=== PATIENT | male | born 1950 | race Caucasian/White ===

== ENCOUNTER 2017-12-31 06:36 | Emergency (ER) | payer OTHER, BC ==
[~2017-12-31] VITALS: Ht 172.7 cm; Wt 87.9 kg
[~2017-12-31 06:36] MED LIST: ASPIRIN81 M2 PO; AZITHROMYCIN250 MG1 PO; FISH OIL 1,2001 EAC4 PO; GLYBURIDE2.5 MG PO; LANTUS 3 M100 UNITS1 SC; LIPITOR40 MG PO; METFORMIN HCL1000 MG PO; MULTIVITAMIN PO; NAPROSYN500 MG PO; PRILOSEC OTC20 MG PO; RAMIPRIL10 MG PO; VITAMIN D400 UNI1 PO
[2017-12-31] MEDS ORDERED: VOLTAREN 1% GE100 GM TP (08:57)
[2017-12-31] MEDS ORDERED: MOTRIN800 MG PO (08:57)
[2017-12-31] MEDS ORDERED: TRAMADOL HCL50 MG PO (08:57)
[2017-12-31 09:47] VITALS: BP 149/87
== END 2017-12-31 09:49 | disposition home or self-care (01) ==
LOC: EME 06:36
DX: M25.552 Pain in left hip (principal); M13.852 Other specified arthritis, left hip; I10 Essential (primary) hypertension; E78.5 Hyperlipidemia, unspecified; E11.9 Type 2 diabetes mellitus without complications; Z79.4 Long term (current) use of insulin; Z79.82 Long term (current) use of aspirin
CPT/HCPCS: 73502; 99281; 99283; J1885